=== PATIENT | female | born 2000 | race Two or more races ===

== ENCOUNTER 2021-04-03 01:11 | Emergency (ER) | payer OTHER ==
[2021-04-03] MEDS ORDERED: IBUPROFEN 400 MG TABLET (FP) PO ONE ×2 (01:17→01:22)
[2021-04-03 01:21] VITALS: BP 104/68; PULSE 76; TEMP 98.6
== END 2021-04-03 01:28 | disposition home or self-care (01) ==
LOC: FER 01:11
DX: R51.9 Headache, unspecified (principal); V89.2XXA Person injured in unspecified motor-vehicle accident, traffic, initial encounter
CPT/HCPCS: 99283-25

== ENCOUNTER 2023-12-20 23:44 | Emergency (ER) | payer OTHER ==
[2023-12-20 23:55] VITALS: BP 102/55; PULSE 77; RESP 16; TEMP 98.2
[2023-12-21] MEDS ORDERED: ACETAMINOPHEN 325 MG TABLET (FP) ONE (01:07)
[2023-12-21] MEDS: ACETAMINOPHEN 325 MG TABLET (FP) PO ONE (01:08)
== END 2023-12-21 02:13 | disposition home or self-care (01) ==
LOC: JER 23:44
DX: S61.312A Laceration without foreign body of right middle finger with damage to nail, initial encounter (principal); W23.1XXA Caught, crushed, jammed, or pinched between stationary objects, initial encounter
CPT/HCPCS: 73130-TC-RT-FY; 99283-25